=== PATIENT | female | born 1995 | race Caucasian/White ===

== ENCOUNTER 2024-02-22 00:10 | Emergency (ER) | payer MEDICAID ==
[~2024-02-22] VITALS: Ht 157.5 cm; Wt 65.0 kg
[2024-02-22 00:14] VITALS: TEMP 98.8; O2SAT 98
[2024-02-22] MEDS ORDERED: MUPI1OIN4 TP (03:13)
[2024-02-22] MEDS ORDERED: CEPH500C2 MT (03:13)
[2024-02-22] MEDS ORDERED: IBUP-2029 MT (03:13)
[2024-02-22] MEDS ORDERED: SULF1TAB48 MT (03:13)
[2024-02-22] MEDS: IBUPROFEN 600MG TABLET PO ONE (03:57)
[2024-02-22] MEDS: SULFAMETHOXAZOLE/TRIMETHOPRIM 800/160MG TABLET PO ONE (03:57)
[2024-02-22] MEDS: CEPHALEXIN 250MG CAPSULE PO ONE (03:57)
[2024-02-22 04:05] VITALS: BP 109/62; PULSE 99; RESP 11
== END 2024-02-22 04:11 | disposition home or self-care (01) ==
LOC: ER 00:21
DX: L03.115 Cellulitis of right lower limb (principal)
CPT/HCPCS: 99284; Z7610